=== PATIENT | female | born 1995 | race African-American/Black ===

== ENCOUNTER 2017-10-11 14:05 | Inpatient (IN) ==
[~2017-10-11 14:05] MED LIST: Lidocaine PF 1% Inj 5 ML Syringe INFILTRATN ONE; Phenylephrine/NS 1000 MCG/10ML Syringe IV.PUSH ONE; Succinylcholine Inj 100 MG/5 ML Syringe IV.PUSH ONE
[2017-10-11] MEDS ORDERED: Sod Chloride 0.9% Inj 1,000 ML IV.SIG ONE ×3 (15:16→18:37)
[2017-10-11 15:50] LABS: Baso % (Auto) 0.3 % (0.0-2.0); Eos % (Auto) 0.1 % (0.0-4.0); Hematocrit 33.9 % (35.0-46.0); Hemoglobin 11.1 gm/dL (11.6-15.3); Lymph # (Auto) 2.4 th/mm3 (1.0-4.8); Lymph % (Auto) 18.6 % (9.0-44.0); Mean Corpuscular HGB Conc 32.9 % (32.0-36.0); Mean Corpuscular Hemoglobin 28.5 pg (27.0-34.0); Mean Corpuscular Volume 86.6 fL (80.0-100.0); Mean Platelet Volume 8.7 fL (7.0-11.0); Mono # (Auto) 0.6 th/mm3 (0.0-0.9); Mono % (Auto) 4.4 % (0.0-8.0); Neut % (Auto) 76.6 % (16.0-70.0); Platelet Count 333 th/mm3 (150-450); Red Blood Count 3.91 mil/mm3 (4.00-5.30); Red Cell Distribution Width 14.8 % (11.6-17.2)
--- NOTE | 2017-10-11 16:12 | ED ---
HPI General Chief complaint: Dizziness Stated complaint: Abd pain/dizziness Time Seen by Provider: 10/11/17 15:11 History of Present Illness HPI narrative: 21-year-old female presents to the emergency department for evaluation of abdominal pain and dizziness. Patient states that yesterday she had lower abdominal pain that was mild. States that since this morning the pain has been worse and states that the pain is traveling to her right side as well. Describes it as a cramping pain. States that she has had nausea and 2 episodes of nonbloody nonbilious emesis. She also complains of feeling lightheaded. Denies , states her LMP was 3 weeks ago. Denies any fever, chills, diarrhea, vaginal discharge, vaginal bleeding or spotting. Denies any previous abdominal surgeries. No other complaints. Related Data Home Medications Medication Instructions Recorded Confirmed No Known Home Medications 10/11/17 10/11/17 Allergies Allergy/AdvReac Type Severity Reaction Status Date / Time No Known Allergies Allergy Unverified 10/11/17 14:28 Review of Systems ROS: all other systems reviewed are negative [facility] Medical History Medical History Asthma (Acute) [place] teeth extracted (Acute) Social History Social History Substance History: No History of Abuse Second Hand Smoke Exposure: Yes Smoking Status: Current every day smoker Tobacco Type: Cigars How Often Do You Have a Drink Containing Alcohol: Monthly or less Recent Travel in [facility] [[email or web address]] within the Last 8 Weeks: No Recent Out of Country Travel within the Last 8 Weeks: No Immunization History Tetanus Immunization: Unsure Hx Influenza Vaccine This Season: Yes Exam Narrative Exam Narrative: GENERAL: Well-nourished and well-developed pleasant patient in no acute distress who is nontoxic appearing. SKIN: Warm and dry. HEAD: Normocephalic and atraumatic. EYES: No injection, drainage, or hyphema noted. PERRLA. EOMI. ENT: No nasal drainage noted. Oropharynx is clear. NECK: Supple and the trachea is midline. CARDIOVASCULAR: Regular rate and rhythm. RESPIRATORY: Breath sounds are equal bilaterally with no accessory muscle use, wheezing, rhonchi, or crackles. GASTROINTESTINAL: Tenderness to palpation of lower abdomen and right mid abdomen. Patient is guarding. Abdomen is soft and nondistended. GENITOURINARY: Normal external genitalia without lesions or erythema. Vaginal vault without blood. There is thin white vaginal discharge noted with cervical motion tenderness. Cervical os was closed. Uterus nontender and nonenlarged. Bilateral adnexa nontender without masses. MUSCULOSKELETAL: No obvious deformities, swelling, cyanosis, or ecchymosis is present throughout the upper and lower extremities. Patient has full range of motion without any signs of neurovascular compromise. Distal pulses are 2+ throughout. NEUROLOGICAL: Awake, alert, and oriented. Normal speech and gait. Cranial nerves are grossly intact. Course Initial Documented Vital Signs Temperature 97.5 F L 10/11/17 14:08 Pulse Rate 117 H 10/11/17 14:08 Respiratory Rate 16 10/11/17 14:08 Blood Pressure 101/77 10/11/17 14:08 Pulse Oximetry 98 10/11/17 14:08 Last Documented Vital Signs Temperature 98.0 F 10/11/17 19:14 Pulse Rate 98 H 10/11/17 19:14 Respiratory Rate 20 10/11/17 19:14 Blood Pressure 111/58 L 10/11/17 19:14 Pulse Oximetry 98 10/11/17 16:20 Critical Care Time Critical Care Time: Yes Total Critical Care Time: 60 Attestation: Aggregate critical care time was 60 minutes. Time to perform other separately billable procedures was not included in the critical care time. My time did not include minutes spent treating any other patients simultaneously or on activities that did not directly contribute to the patient's treatment. The services I provided to this patient were to treat and/or prevent clinically significant deterioration that could result in: [ from exsanguination] I provided critical care services requiring my management, as noted below: Chart data review, documentation time, medication orders and management, vital sign assessments/reviewing monitor data, ordering and reviewing lab tests, ordering and interpreting/reviewing x-rays and diagnostic studies, care of the patient and discussion of the patient with the admitting physicians. Medical Decision Making ISABEL Attestation ISABEL supervised visit: Yes Attestation: I, Dr. Chin, have reviewed the advance practice practitioner' s documentation and am in agreement, met with the patient face to face, made the diagnosis, and the medical decision making was done by me. The patient was initially evaluated by SAKSHI PFEIFFER. Please see their complete history and physical. *My assessment and Findings: The patient presents with tachycardia, hypotension , positive , bedside ultrasound shows bilateral adnexal masses, radiologist confirmed, Dr. Monsalve [employer] made aware who will come see the patient at the bedside. An ABG will be performed to obtain a hemoglobin to compare it with the previous CBC.. On repeat ABG hemoglobin 7, 2 units of the emergency release blood have been ordered for immediate transfusion... Blood pressure before emergency release blood systolic of 80, after receiving emergency release blood BP INCREASED TO SBP 130, DR CHURCH OBTAINED CONSENTS OVER PHONE AND TOOK PATIENT TO OR AT 1915 During the course of the patient's emergency department visit, the patient's history, examination, and differential diagnosis were reviewed with the patient. The patient was placed on a gambling monitor with oximetry and frequent blood pressure monitoring. The patient had [peripheral] IV access obtained and blood work sent for analysis. The patient's laboratory studies were reviewed and remarkable for [-]. Radiology studies were reviewed and remarkable for [-] MDM Narrative Medical decision making narrative: 21-year-old female presents to the emergency department for evaluation of abdominal pain, nausea, vomiting and lightheadedness. Patient is afebrile. She is slightly tachycardic with heart rate of 117 bpm. Otherwise vital signs within normal limits. IV access is obtained, labs been drawn and sent. Patient is placed on cardiac telemetry and pulse oximetry monitoring. Patient is administered IV fluids and Zofran 4 mg IV. [id number] is positive. Patient has discharged noted on pelvic exam and therefore is administered Rocephin 1 g IV and Zithromax 1 g orally to treat potential GC/chlamydia. Radiologist Dr. Pollard came to read ultrasound at bedside due to abnormalities - he gives verbal report to me that there are bilateral adnexal abnormalities noted with moderate free fluid and no intrauterine , high suspicion for potentially bilateral ectopic pregnancies. Prior to the ultrasound result a VQ scan was ordered to rule out PE as the patient has continued to complain of presyncopal symptoms and her heart rate has remained tachycardic. With the result of her u/s this has been cancelled as her symptoms are likely due to ectopic . She has never had any chest pain or shortness of breath. I spoke with Dr. Jt BERRY at 6:31PM regarding the patient's current presentation of abdominal pain, lightheadedness, presyncope, current BP of 88/ 52 and HR 102 bpm, US findings suspcious for bilateral ectopic . He states he will come see the patient in the ED. My attending physician Dr. Chin assumed care of patient at this point and the patient received emergency release blood prior to being taken to the OR. Medical Screen Exam Complete: Yes Emergency Medical Condition: Yes Differential Diagnosis Differential Diagnosis: Intrauterine versus ectopic versus UTI versus STI Lab Data Result diagrams: 10/11/17 18:30 10/11/17 15:10 Lab Results 10/11/17 10/11/17 10/11/17 Range/Units 14:16 15:10 15:10 WBC 13.0 H (4.0-11.0) th/mm3 RBC 3.91 L (4.00-5.30) mil/mm3 Hgb 11.1 L (11.6-15.3) gm/dL Hct 33.9 L (35.0-46.0) % MCV 86.6 (80.0-100.0) fL MCH 28.5 (27.0-34.0) pg MCHC 32.9 (32.0-36.0) % RDW 14.8 (11.6-17.2) % Plt Count 333 (150-450) th/mm3 MPV 8.7 (7.0-11.0) fL Neut % (Auto) 76.6 H (16.0-70.0) % Lymph % (Auto) 18.6 (9.0-44.0) % Jackson % (Auto) 4.4 (0.0-8.0) % Eos % (Auto) 0.1 (0.0-4.0) % Baso % (Auto) 0.3 (0.0-2.0) % Neut # (Auto) 10.0 H (1.8-7.7) th/mm3 Lymph # (Auto) 2.4 (1.0-4.8) th/mm3 Jackson # (Auto) 0.6 (0.0-0.9) th/mm3 Eos # (Auto) 0.0 (0.0-0.4) th/mm3 Baso # (Auto) 0.0 (0.0-0.2) th/mm3 WBC Differential . Differential Comment Auto diff final PT (9.8-11.6) sec INR Ratio APTT (24.3-30.1) sec Fibrinogen (227-377) mg/dL Puncture Site Patient Temperature O2 Saturation (90-100) % ABG pH (7.380-7.420) ABG pCO2 (38-42) mmHg ABG pO2 (61-120) mmHg ABG HCO3 (22-26) mmol/L ABG O2 Content (12.0-20.0) Vol % ABG Base Excess (-2-2) mmol/L ABG Methemoglobin (0-2) % Francisco Test Hemoglobin (12.0-16.0) G/DL Carboxyhemoglobin (0-4) % Inspired O2 % Critical Value Sodium 138 (136-145) meq/L Potassium 3.7 (3.5-5.1) meq/L Chloride 106 (98-107) meq/L Carbon Dioxide 24.3 (21.0-32.0) meq/L Anion Gap 8 (5-15) meq/L BUN 8 (7-18) mg/dL Creatinine 0.91 (0.50-1.00) mg/dL Estimated GFR Greater than 89 (>89) mL/min POC Glucose 177 H (68-110) mg/dl Random Glucose 140 H (74-106) mg/dL Calcium 8.4 L (8.5-10.1) mg/dL Total Bilirubin 0.2 (0.2-1.0) mg/dL AST 8 L (16-38) U/L ALT 12 (9-42) U/L Alkaline Phosphatase 38 L (45-117) U/L Total Protein 7.3 (6.4-8.2) g/dL Albumin 3.8 (3.4-5.0) g/dL Lipase 60 L (73-393) U/L Beta HCG, Quant (0-5) mIU/mL Clue Cells (Wet Prep) (None Seen) Trichomonas (Wet Prep) (None Seen) Yeast (Wet Prep) (None Seen) Chlam trachomat DNA PCR (Not Detect) N.gonorrhoeae DNA (PCR) (Not Detect) Blood Type Antibody Screen MTS Gel Crossmatch Blood Bank Comment 10/11/17 10/11/17 10/11/17 Range/Units 15:10 16:40 16:40 WBC (4.0-11.0) th/mm3 RBC (4.00-5.30) mil/mm3 Hgb (11.6-15.3) gm/dL Hct (35.0-46.0) % MCV (80.0-100.0) fL MCH (27.0-34.0) pg MCHC (32.0-36.0) % RDW (11.6-17.2) % Plt Count (150-450) th/mm3 MPV (7.0-11.0) fL Neut % (Auto) (16.0-70.0) % Lymph % (Auto) (9.0-44.0) % Jackson % (Auto) (0.0-8.0) % Eos % (Auto) (0.0-4.0) % Baso % (Auto) (0.0-2.0) % Neut # (Auto) (1.8-7.7) th/mm3 Lymph # (Auto) (1.0-4.8) th/mm3 Jackson # (Auto) (0.0-0.9) th/mm3 Eos # (Auto) (0.0-0.4) th/mm3 Baso # (Auto) (0.0-0.2) th/mm3 WBC Differential Differential Comment PT (9.8-11.6) sec INR Ratio APTT (24.3-30.1) sec Fibrinogen (227-377) mg/dL Puncture Site Patient Temperature O2 Saturation (90-100) % ABG pH (7.380-7.420) ABG pCO2 (38-42) mmHg ABG pO2 (61-120) mmHg ABG HCO3 (22-26) mmol/L ABG O2 Content (12.0-20.0) Vol % ABG Base Excess (-2-2) mmol/L ABG Methemoglobin (0-2) % Francisco Test Hemoglobin (12.0-16.0) G/DL Carboxyhemoglobin (0-4) % Inspired O2 % Critical Value Sodium (136-145) meq/L Potassium (3.5-5.1) meq/L Chloride (98-107) meq/L Carbon Dioxide (21.0-32.0) meq/L Anion Gap (5-15) meq/L BUN (7-18) mg/dL Creatinine (0.50-1.00) mg/dL Estimated GFR (>89) mL/min POC Glucose (68-110) mg/dl Random Glucose (74-106) mg/dL Calcium (8.5-10.1) mg/dL Total Bilirubin (0.2-1.0) mg/dL AST (16-38) U/L ALT (9-42) U/L Alkaline Phosphatase (45-117) U/L Total Protein (6.4-8.2) g/dL Albumin (3.4-5.0) g/dL Lipase (73-393) U/L Beta HCG, Quant 3616 H (0-5) mIU/mL Clue Cells (Wet Prep) None seen (None Seen) Trichomonas (Wet Prep) None seen (None Seen) Yeast (Wet Prep) None seen (None Seen) Chlam trachomat DNA PCR Not detected (Not Detect) N.gonorrhoeae DNA (PCR) Not detected (Not Detect) Blood Type Antibody Screen MTS Gel Crossmatch Blood Bank Comment 10/11/17 10/11/17 10/11/17 Range/Units 18:30 18:30 18:30 WBC 17.2 H (4.0-11.0) th/mm3 RBC 2.91 L (4.00-5.30) mil/mm3 Hgb 8.2 L D (11.6-15.3) gm/dL Hct 25.3 L (35.0-46.0) % MCV 87.2 (80.0-100.0) fL MCH 28.3 (27.0-34.0) pg MCHC 32.4 (32.0-36.0) % RDW 14.7 (11.6-17.2) % Plt Count 297 (150-450) th/mm3 MPV 8.4 (7.0-11.0) fL Neut % (Auto) 85.8 H (16.0-70.0) % Lymph % (Auto) 10.7 (9.0-44.0) % Jackson % (Auto) 3.4 (0.0-8.0) % Eos % (Auto) 0.0 (0.0-4.0) % Baso % (Auto) 0.1 (0.0-2.0) % Neut # (Auto) 14.7 H (1.8-7.7) th/mm3 Lymph # (Auto) 1.8 (1.0-4.8) th/mm3 Jackson # (Auto) 0.6 (0.0-0.9) th/mm3 Eos # (Auto) 0.0 (0.0-0.4) th/mm3 Baso # (Auto) 0.0 (0.0-0.2) th/mm3 WBC Differential . Differential Comment Auto diff final PT 10.8 (9.8-11.6) sec INR 1.1 Ratio APTT 22.1 L (24.3-30.1) sec Fibrinogen (227-377) mg/dL Puncture Site Patient Temperature O2 Saturation (90-100) % ABG pH (7.380-7.420) ABG pCO2 (38-42) mmHg ABG pO2 (61-120) mmHg ABG HCO3 (22-26) mmol/L ABG O2 Content (12.0-20.0) Vol % ABG Base Excess (-2-2) mmol/L ABG Methemoglobin (0-2) % Francisco Test Hemoglobin (12.0-16.0) G/DL Carboxyhemoglobin (0-4) % Inspired O2 % Critical Value Sodium (136-145) meq/L Potassium (3.5-5.1) meq/L Chloride (98-107) meq/L Carbon Dioxide (21.0-32.0) meq/L Anion Gap (5-15) meq/L BUN (7-18) mg/dL Creatinine (0.50-1.00) mg/dL Estimated GFR (>89) mL/min POC Glucose (68-110) mg/dl Random Glucose (74-106) mg/dL Calcium (8.5-10.1) mg/dL Total Bilirubin (0.2-1.0) mg/dL AST (16-38) U/L ALT (9-42) U/L Alkaline Phosphatase (45-117) U/L Total Protein (6.4-8.2) g/dL Albumin (3.4-5.0) g/dL Lipase (73-393) U/L Beta HCG, Quant (0-5) mIU/mL Clue Cells (Wet Prep) (None Seen) Trichomonas (Wet Prep) (None Seen) Yeast (Wet Prep) (None Seen) Chlam trachomat DNA PCR (Not Detect) N.gonorrhoeae DNA (PCR) (Not Detect) Blood Type A Positive Antibody Screen Negative MTS Gel Crossmatch Blood Bank Comment 10/11/17 10/11/17 10/11/17 Range/Units 18:30 18:30 18:50 WBC (4.0-11.0) th/mm3 RBC (4.00-5.30) mil/mm3 Hgb (11.6-15.3) gm/dL Hct (35.0-46.0) % MCV (80.0-100.0) fL MCH (27.0-34.0) pg MCHC (32.0-36.0) % RDW (11.6-17.2) % Plt Count (150-450) th/mm3 MPV (7.0-11.0) fL Neut % (Auto) (16.0-70.0) % Lymph % (Auto) (9.0-44.0) % Jackson % (Auto) (0.0-8.0) % Eos % (Auto) (0.0-4.0) % Baso % (Auto) (0.0-2.0) % Neut # (Auto) (1.8-7.7) th/mm3 Lymph # (Auto) (1.0-4.8) th/mm3 Jackson # (Auto) (0.0-0.9) th/mm3 Eos # (Auto) (0.0-0.4) th/mm3 Baso # (Auto) (0.0-0.2) th/mm3 WBC Differential Differential Comment PT (9.8-11.6) sec INR Ratio APTT (24.3-30.1) sec Fibrinogen 239 (227-377) mg/dL Puncture Site Left radial Patient Temperature 98.6 O2 Saturation 97 (90-100) % ABG pH 7.34 L (7.380-7.420) ABG pCO2 30 L (38-42) mmHg ABG pO2 117 (61-120) mmHg ABG HCO3 16 L* (22-26) mmol/L ABG O2 Content 10.1 L (12.0-20.0) Vol % ABG Base Excess -9.1 L (-2-2) mmol/L ABG Methemoglobin 0.7 (0-2) % Francisco Test Present Hemoglobin 7.3 L (12.0-16.0) G/DL Carboxyhemoglobin 1.1 (0-4) % Inspired O2 21 % Critical Value Yes Sodium (136-145) meq/L Potassium (3.5-5.1) meq/L Chloride (98-107) meq/L Carbon Dioxide (21.0-32.0) meq/L Anion Gap (5-15) meq/L BUN (7-18) mg/dL Creatinine (0.50-1.00) mg/dL Estimated GFR (>89) mL/min POC Glucose (68-110) mg/dl Random Glucose (74-106) mg/dL Calcium (8.5-10.1) mg/dL Total Bilirubin (0.2-1.0) mg/dL AST (16-38) U/L ALT (9-42) U/L Alkaline Phosphatase (45-117) U/L Total Protein (6.4-8.2) g/dL Albumin (3.4-5.0) g/dL Lipase (73-393) U/L Beta HCG, Quant (0-5) mIU/mL Clue Cells (Wet Prep) (None Seen) Trichomonas (Wet Prep) (None Seen) Yeast (Wet Prep) (None Seen) Chlam trachomat DNA PCR (Not Detect) N.gonorrhoeae DNA (PCR) (Not Detect) Blood Type Antibody Screen MTS Gel Crossmatch See Detail Blood Bank Comment 10/11/17 10/11/17 Range/Units 19:13 19:13 WBC (4.0-11.0) th/mm3 RBC (4.00-5.30) mil/mm3 Hgb (11.6-15.3) gm/dL Hct (35.0-46.0) % MCV (80.0-100.0) fL MCH (27.0-34.0) pg MCHC (32.0-36.0) % RDW (11.6-17.2) % Plt Count (150-450) th/mm3 MPV (7.0-11.0) fL Neut % (Auto) (16.0-70.0) % Lymph % (Auto) (9.0-44.0) % Jackson % (Auto) (0.0-8.0) % Eos % (Auto) (0.0-4.0) % Baso % (Auto) (0.0-2.0) % Neut # (Auto) (1.8-7.7) th/mm3 Lymph # (Auto) (1.0-4.8) th/mm3 Jackson # (Auto) (0.0-0.9) th/mm3 Eos # (Auto) (0.0-0.4) th/mm3 Baso # (Auto) (0.0-0.2) th/mm3 WBC Differential Differential Comment PT (9.8-11.6) sec INR Ratio APTT (24.3-30.1) sec Fibrinogen (227-377) mg/dL Puncture Site Patient Temperature O2 Saturation (90-100) % ABG pH (7.380-7.420) ABG pCO2 (38-42) mmHg ABG pO2 (61-120) mmHg ABG HCO3 (22-26) mmol/L ABG O2 Content (12.0-20.0) Vol % ABG Base Excess (-2-2) mmol/L ABG Methemoglobin (0-2) % Francisco Test Hemoglobin (12.0-16.0) G/DL Carboxyhemoglobin (0-4) % Inspired O2 % Critical Value Sodium (136-145) meq/L Potassium (3.5-5.1) meq/L Chloride (98-107) meq/L Carbon Dioxide (21.0-32.0) meq/L Anion Gap (5-15) meq/L BUN (7-18) mg/dL Creatinine (0.50-1.00) mg/dL Estimated GFR (>89) mL/min POC Glucose (68-110) mg/dl Random Glucose (74-106) mg/dL Calcium (8.5-10.1) mg/dL Total Bilirubin (0.2-1.0) mg/dL AST (16-38) U/L ALT (9-42) U/L Alkaline Phosphatase (45-117) U/L Total Protein (6.4-8.2) g/dL Albumin (3.4-5.0) g/dL Lipase (73-393) U/L Beta HCG, Quant (0-5) mIU/mL Clue Cells (Wet Prep) (None Seen) Trichomonas (Wet Prep) (None Seen) Yeast (Wet Prep) (None Seen) Chlam trachomat DNA PCR (Not Detect) N.gonorrhoeae DNA (PCR) (Not Detect) Blood Type Antibody Screen MTS Gel Crossmatch See Detail Blood Bank Comment Imaging Data Radiologist's impression: Pelvis Ultrasound 10/11/17 16:04 CONCLUSION: 1. Intrauterine is not identified despite a quantitative beta-hCG greater than 3500. 2. No abnormalities seen in both adnexa, a 2.2 cm cyst with small internal wall nodule on the right side and a solid lesion in the left adnexa measuring 3.0 cm with 2 different echogenic components. There is also moderate amount of free fluid. Either of the abnormalities in the left or right adnexa could represent ectopic pregnancies. 3. The findings were discussed with the ED providers. Chest X-Ray 10/11/17 18:03 CONCLUSION: The lungs are clear. Discharge Plan Discharge Disposition Patient Disposition: 30 Still Patient Discharge Condition Condition: Good Discharge Order Discharge Orders: Discharge Order (Routine); Ordered 10/12/17 Ordered By: Tez Waters Discharge Details Anticipated Discharge Date: 10/11/17 Diagnosis: Ectopic , tubal Physicians Team ED Provider: Satinder Chin ED Midlevel Provider: Sakshi Pfeiffer Primary Care Provider: Primary Care Asia Alvarez Attending Provider: Tez Waters Status ED Status: Left Department Discharge Information Discharge Date/Time: 10/11/17 20:13
[2017-10-11 16:16] LABS: Alanine Aminotransferase 12 U/L (9-42); Albumin 3.8 g/dL (3.4-5.0); Anion Gap 8 meq/L (5-15); Aspartate Aminotransferase 8 U/L (16-38); Blood Urea Nitrogen 8 mg/dL (7-18); Calcium 8.4 mg/dL (8.5-10.1); Carbon Dioxide 24.3 meq/L (21.0-32.0); Chloride 106 meq/L (98-107); Glomerular Filtration Rate Greater Than 89 mL/min (>89); Glucose,Random 140 mg/dL (74-106); Lipase 60 U/L (73-393); Potassium 3.7 meq/L (3.5-5.1); Sodium 138 meq/L (136-145)
[2017-10-11 16:18] LABS: Alkaline Phosphatase 38 U/L (45-117); Total Protein 7.3 g/dL (6.4-8.2)
[2017-10-11] MEDS ORDERED: Azithromycin 250 MG Tablet PO ONE (16:44)
[2017-10-11 18:44] LABS: ABG Base Excess -9.1 mmol/L (-2-2); ABG PCO2 30 mmHg (38-42); ABG PO2 117 mmHg (61-120)
[2017-10-11 18:50] LABS: Baso % (Auto) 0.1 % (0.0-2.0); Hematocrit 25.3 % (35.0-46.0); Hemoglobin 8.2 gm/dL (11.6-15.3); Lymph # (Auto) 1.8 th/mm3 (1.0-4.8); Lymph % (Auto) 10.7 % (9.0-44.0); Mean Corpuscular HGB Conc 32.4 % (32.0-36.0); Mean Corpuscular Hemoglobin 28.3 pg (27.0-34.0); Mean Corpuscular Volume 87.2 fL (80.0-100.0); Mean Platelet Volume 8.4 fL (7.0-11.0); Mono # (Auto) 0.6 th/mm3 (0.0-0.9); Mono % (Auto) 3.4 % (0.0-8.0); Neut # (Auto) 14.7 th/mm3 (1.8-7.7); Neut % (Auto) 85.8 % (16.0-70.0); Platelet Count 297 th/mm3 (150-450); Red Blood Count 2.91 mil/mm3 (4.00-5.30); Red Cell Distribution Width 14.7 % (11.6-17.2); White Blood Count 17.2 th/mm3 (4.0-11.0)
--- NOTE | 2017-10-11 18:59 | US ---
EXAM DATE: 10/11/2017 6:34 PM EDT AGE/SEX: 21 years / Female INDICATIONS: Pelvic pain. CLINICAL DATA: This is the patient's initial encounter. Patient reports that signs and symptoms have been present for 1 week and indicates a pain score of 10/10. MEDICAL/SURGICAL HISTORY: Asthma. . [place] teeth extracted. COMPARISON: No prior exams available for comparison. TECHNIQUE: Real-time ultrasound of the pelvis was performed using an endovaginal transducer. [facility] [place]UREMENTS: Uterus:__7.9 x 5.4 x 4.0 cm Endometrial Stripe:__6 mm Right Ovary:__ 3.2 x 1.8 x 2.0 cm Left Ovary:__ 3.8 x 2.8 x 2.4 cm FINDINGS: Uterus: The endometrial stripe has a homogeneous echotexture no evidence of endometrial fluid. No ge stational sac is identified. The myometrium has a homogeneous echotexture. Right adnexa: The right ovary is identified and contains multiple follicles. Adjacent to the right o vary, there is a thick walled cystic abnormality which measures 2.2 x 1.8 x 1.9 cm. There is a 2 mm n odule in the wall of the cyst. No increased flow seen by color Doppler. Left adnexa: Left ovary is identified and contains multiple follicles. There is also a solid abnorma lity which measures 3.0 x 2.7 x 2.7 cm either located within or adjacent to the ovary. A portion of t his abnormality is crescentic in shape with homogeneous echotexture. The other portion is round and h as a hypoechogenic rim and hyperechogenic central septum. There is one vessel identified within the h omogeneous portion by color Doppler. Other: Moderate amount of free fluid in the cul-de-sac and about both adnexa. CONCLUSION: 1. Intrauterine is not identified despite a quantitative beta-hCG greater than 3500. 2. No abnormalities seen in both adnexa, a 2.2 cm cyst with small internal wall nodule on the right side and a solid lesion in the left adnexa measuring 3.0 cm with 2 different echogenic components. Th ere is also moderate amount of free fluid. Either of the abnormalities in the left or right adnexa co uld represent ectopic pregnancies. 3. The findings were discussed with the ED providers. Electronically signed by: Jm Pollard MD 10/11/2017 6:58 PM EDT
[2017-10-11 19:00] LABS: Activated Partial Thrombo Time 22.1 sec (24.3-30.1); INR 1.1 Ratio; Prothrombin Time 10.8 sec (9.8-11.6)
[2017-10-11] MEDS ORDERED: Bupivacaine/Epinephrine PF Inj 0.25% 10 ML Vial ONE (19:21)
--- NOTE | 2017-10-11 19:28 | P.HPOB ---
History of Present Illness Primary Care Physician: No Primary Care Physician History of Present Illness: 21 yo G1 AAF here today by herself who presented to the ER with abdominal pain, I was notified by the ER PA that she may have "bilateral ectopics", she was noted be tachycardic, and hypotensive, her Hb trended from 11.0 to 7.3 while in the ER. She is somewhat somnolent during our encounter but she states this is a unplanned , she has regular monthly cycles, and her LMP was around 3-4 weeks ago making her 3-4 weeks gestation by her states LMP, she denies any vaginal bleeding. She has not been using contraception. 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 PE: General: alert in bed, in mild distress Skin: cool and dry Pulm: CTA Bilat Cardiac: tachycardic, no MR or G ABD: soft, distended, no rebound, no gaurding, : deferred Extrem: no CCE PMFSH - History History Provided By: Patient - Medical History Medical History: Medical History (Last Updated 10/11/17 @ 14:31 by Gurdeep Boogie) Asthma [place] teeth extracted - Tobacco History Second Hand Smoke Exposure: Yes Tobacco Use In Past 30 Days: Yes Smoking Status: Current every day smoker Tobacco Type: Cigars - Alcohol History How Often Do You Have a Drink Containing Alcohol: Monthly or less - Substance Use History Substance History: No History of Abuse - Travel History Recent Travel in the [place] Within the Last 8 Weeks: No Recent Travel Out of the Country Within the Last 8 Weeks: No - Immunization History Tetanus Immunization: Unsure Hx Influenza Vaccine This Season: Yes Medications and Allergies Active Medications: Active Medications Cefazolin Sodium 2,000 mg/ (Sodium Chloride) 100 mls @ 200 mls/hr IV.SIG [employer] [facility] Stop: 10/15/17 19:59 Lactated Ringer's (Lr 1000 Ml Inj) 1,000 mls @ 2,000 mls/hr IV.SIG .Q30M ONE Stop: 10/11/17 19:36 Lactated Ringer's (Lr 1000 Ml Inj) 1,000 mls @ 150 mls/hr IV.CONT .Q6H40M [facility] Sodium Chloride (Ns Flush) 2 ml IV.FLUSH PRN PRN PRN Reason: FLUSH AFTER USING IV ACCESS Allergies Allergy/AdvReac Type Severity Reaction Status Date / Time No Known Allergies Allergy Unverified 10/11/17 14:28 Home Medications Medication Instructions Recorded Confirmed Type No Known Home Medications 10/11/17 10/11/17 History Exam Vital signs: Vital Signs 10/11/17 14:08 10/11/17 14:14 10/11/17 16:20 Temperature 97.5 F L Pulse Rate 117 H 102 H Respiratory Rate 16 17 19 Blood Pressure 101/77 100/55 L Pulse Oximetry 98 97 10/11/17 19:00 Temperature 98.8 F Pulse Rate 107 H Respiratory Rate 18 Blood Pressure 147/60 H Pulse Oximetry Intake & Output 10/11/17 10/11/17 10/12/17 06:59 18:59 06:59 Intake Total 0 / 0 0 / 0 Balance 0 / 0 0 / 0 Weight 68.039 kg Intake: Intake (Blood Product) Amt 0 / 0 0 / 0 Rbc As-3 Leukoreduced Unit 0 / 0 [id number] Rbc As-3 Leukoreduced Unit 0 / 0 [id number] Results - Labs CBC & Chem 7: 10/11/17 18:30 10/11/17 15:10 Labs: Laboratory Results - last 24 hr 10/11/17 10/11/17 10/11/17 14:16 15:10 15:10 WBC 13.0 H RBC 3.91 L Hgb 11.1 L Hct 33.9 L MCV 86.6 MCH 28.5 MCHC 32.9 RDW 14.8 Plt Count 333 MPV 8.7 Neut % (Auto) 76.6 H Lymph % (Auto) 18.6 Toole % (Auto) 4.4 Eos % (Auto) 0.1 Baso % (Auto) 0.3 Neut # (Auto) 10.0 H Lymph # (Auto) 2.4 Toole # (Auto) 0.6 Eos # (Auto) 0.0 Baso # (Auto) 0.0 WBC Differential . Differential Comment Auto diff final PT INR APTT Puncture Site Patient Temperature O2 Saturation ABG pH ABG pCO2 ABG pO2 ABG HCO3 ABG O2 Content ABG Base Excess ABG Methemoglobin Francisco Test Hemoglobin Carboxyhemoglobin Inspired O2 Critical Value Sodium 138 Potassium 3.7 Chloride 106 Carbon Dioxide 24.3 Anion Gap 8 BUN 8 Creatinine 0.91 Estimated GFR Greater than 89 POC Glucose 177 H Random Glucose 140 H Calcium 8.4 L Total Bilirubin 0.2 AST 8 L ALT 12 Alkaline Phosphatase 38 L Total Protein 7.3 Albumin 3.8 Lipase 60 L Beta HCG, Quant Clue Cells (Wet Prep) Trichomonas (Wet Prep) Yeast (Wet Prep) Blood Type [facility] Gel Crossmatch 10/11/17 10/11/17 10/11/17 15:10 16:40 18:30 WBC 17.2 H RBC 2.91 L Hgb 8.2 L D Hct 25.3 L MCV 87.2 MCH 28.3 MCHC 32.4 RDW 14.7 Plt Count 297 MPV 8.4 Neut % (Auto) 85.8 H Lymph % (Auto) 10.7 Toole % (Auto) 3.4 Eos % (Auto) 0.0 Baso % (Auto) 0.1 Neut # (Auto) 14.7 H Lymph # (Auto) 1.8 Toole # (Auto) 0.6 Eos # (Auto) 0.0 Baso # (Auto) 0.0 WBC Differential . Differential Comment Auto diff final PT INR APTT Puncture Site Patient Temperature O2 Saturation ABG pH ABG pCO2 ABG pO2 ABG HCO3 ABG O2 Content ABG Base Excess ABG Methemoglobin Francisco Test Hemoglobin Carboxyhemoglobin Inspired O2 Critical Value Sodium Potassium Chloride Carbon Dioxide Anion Gap BUN Creatinine Estimated GFR POC Glucose Random Glucose Calcium Total Bilirubin AST ALT Alkaline Phosphatase Total Protein Albumin Lipase Beta HCG, Quant 3616 H Clue Cells (Wet Prep) None seen Trichomonas (Wet Prep) None seen Yeast (Wet Prep) None seen Blood Type MTS Gel Crossmatch 10/11/17 10/11/17 10/11/17 18:30 18:30 18:30 WBC RBC Hgb Hct MCV MCH MCHC RDW Plt Count MPV Neut % (Auto) Lymph % (Auto) Toole % (Auto) Eos % (Auto) Baso % (Auto) Neut # (Auto) Lymph # (Auto) Toole # (Auto) Eos # (Auto) Baso # (Auto) WBC Differential Differential Comment PT 10.8 INR 1.1 APTT 22.1 L Puncture Site Left radial Patient Temperature 98.6 O2 Saturation 97 ABG pH 7.34 L ABG pCO2 30 L ABG pO2 117 ABG HCO3 16 L* ABG O2 Content 10.1 L ABG Base Excess -9.1 L ABG Methemoglobin 0.7 Francisco Test Present Hemoglobin 7.3 L Carboxyhemoglobin 1.1 Inspired O2 21 Critical Value Yes Sodium Potassium Chloride Carbon Dioxide Anion Gap BUN Creatinine Estimated GFR POC Glucose Random Glucose Calcium Total Bilirubin AST ALT Alkaline Phosphatase Total Protein Albumin Lipase Beta HCG, Quant Clue Cells (Wet Prep) Trichomonas (Wet Prep) Yeast (Wet Prep) Blood Type A Positive MTS Gel Crossmatch 10/11/17 18:50 WBC RBC Hgb Hct MCV MCH MCHC RDW Plt Count MPV Neut % (Auto) Lymph % (Auto) Toole % (Auto) Eos % (Auto) Baso % (Auto) Neut # (Auto) Lymph # (Auto) Toole # (Auto) Eos # (Auto) Baso # (Auto) WBC Differential Differential Comment PT INR APTT Puncture Site Patient Temperature O2 Saturation ABG pH ABG pCO2 ABG pO2 ABG HCO3 ABG O2 Content ABG Base Excess ABG Methemoglobin Francisco Test Hemoglobin Carboxyhemoglobin Inspired O2 Critical Value Sodium Potassium Chloride Carbon Dioxide Anion Gap BUN Creatinine Estimated GFR POC Glucose Random Glucose Calcium Total Bilirubin AST ALT Alkaline Phosphatase Total Protein Albumin Lipase Beta HCG, Quant Clue Cells (Wet Prep) Trichomonas (Wet Prep) Yeast (Wet Prep) Blood Type MTS Gel Crossmatch See Detail - Imaging Impressions Pelvis Ultrasound 10/11/17 16:04 CONCLUSION: 1. Intrauterine is not identified despite a quantitative beta-hCG greater than 3500. 2. No abnormalities seen in both adnexa, a 2.2 cm cyst with small internal wall nodule on the right side and a solid lesion in the left adnexa measuring 3.0 cm with 2 different echogenic components. There is also moderate amount of free fluid. Either of the abnormalities in the left or right adnexa could represent ectopic pregnancies. 3. The findings were discussed with the ED providers. Caprini VTE Risk Assessment Caprini VTE Risk Assessment: Moderate/High Risk (score >= 2) Caprini Risk Assessment Model: Point Value = 1 Point Value = 2 Point Value = 3 Point Value = 5 Age 41-60 Minor surgery BMI > 25 kg/m2 Swollen legs Varicose veins or History of unexplained or recurrent spontaneous Oral contraceptives or hormone replacement Sepsis (< 1 month) Serious lung disease, including pneumonia (< 1 month) Abnormal pulmonary function Acute myocardial infarction Congestive heart failure (< 1 month) History of inflammatory bowel disease Medical patient at bed rest Age 61-74 Arthroscopic surgery Major open surgery (> 45 min) Laparoscopic surgery (> 45 min) Malignancy Confined to bed (> 72 hours) Immobilizing plaster cast Central venous access Age >= 75 History of VTE Family history of VTE Factor V Leiden Prothrombin [id number] Lupus anticoagulant Anticardiolipin antibodies Elevated serum homocysteine Heparin-induced thrombocytopenia Other congenital or acquired thrombophilia Stroke (< 1 month) Elective arthroplasty Hip, pelvis, or leg fracture Acute spinal cord injury (< 1 month) Prophylaxis Regimen: Total Risk Factor Score Risk Level Prophylaxis Regimen 0-1 Low Early ambulation 2 Moderate Order ONE of the following: *Sequential Compression Device (SCD) *Heparin 5000 units SQ BID 3-4 Higher Order ONE of the following medications: *Heparin 5000 units SQ TID *Enoxaparin/Lovenox 40 mg SQ daily (WT < 150 kg, CrCl > 30 mL/min) *Enoxaparin/Lovenox 30 mg SQ daily (WT < 150 kg, CrCl > 10-29 mL/min) *Enoxaparin/Lovenox 30 mg SQ BID (WT < 150 kg, CrCl > 30 mL/min) AND/OR *Sequential Compression Device (SCD) 5 or more Highest Order ONE of the following medications: *Heparin 5000 units SQ TID (Preferred with Epidurals) *Enoxaparin/Lovenox 40 mg SQ daily (WT < 150 kg, CrCl > 30 mL/min) *Enoxaparin/Lovenox 30 mg SQ daily (WT < 150 kg, CrCl > 10-29 mL/min) *Enoxaparin/Lovenox 30 mg SQ BID (WT < 150 kg, CrCl > 30 mL/min) AND *Sequential Compression Device (SCD) Assessment and Plan - Plan 21 yo G1 with suspected ectopic 1. symptomatic anemia, suspected ruptured ectopic : based on US findings, beta hcg and Hb trend w/o vaginal bleeding my suspicion is high for ruptured ectopic , - discussed plan for diagnostic laparoscopy, possible laparotomy, possible unilateral or bilateral salpingectomy and/or removal of ectopic , possible D&C and any other indicated procedures. Discussed R/B/A and expected outcomes, bleeding scarring infection, damage to surrounding organs, and small risk of , there are always possibility of unforeseen complications of risks and she consented to the above - She has already received 2 units of emergency release PRBCs, 2 are in the room and will move to the OR with her, I T&C x4 and for 4 of FFP. - PT/PTT are WNL. will repeat with fibrinogen in OR - Discussed above with her mother Tess [phone] ) and she verbalized understanding, she is unforunetly out of the area working in [place]
[2017-10-11] MEDS ORDERED: ceFAZolin Inj 2,000 MG in Sodium Chlor 0.9% Inj 80 ML IV.SIG SCH (20:00)
--- NOTE | 2017-10-11 20:43 | XR ---
EXAM DATE: 10/11/2017 7:35 PM EDT AGE/SEX: 21 years / Female INDICATIONS: Syncope. Possible ectopic . CLINICAL DATA: This is the patient's initial encounter. Patient reports that signs and symptoms have been present for 1 day and indicates a pain score of 0/10. MEDICAL/SURGICAL HISTORY: None. None. COMPARISON: No prior exams available for comparison. FINDINGS: A single AP view of the chest demonstrates the lungs to be symmetrically aerated without evidence of mass, infiltrate or effusion. Incidental note of azygous lobe. The cardiomediastinal contours are un remarkable. Osseous structures are intact. CONCLUSION: The lungs are clear. Electronically signed by: Jm Pollard MD 10/11/2017 8:41 PM EDT
[2017-10-11] MEDS ORDERED: fentaNYL Citrate Inj 250 MCG/5 ML Ampul ONE (20:48)
[2017-10-11] MEDS ORDERED: fentaNYL Citrate Inj 100 MCG/2 ML Ampul ONE (20:52)
[2017-10-11] MEDS ORDERED: Sugammadex Inj 200 MG/2 ML Vial IV.PUSH ONE (20:54)
[2017-10-11] MEDS ORDERED: Ibuprofen 600 MG Tablet PO PRN (21:14)
[2017-10-11] MEDS ORDERED: *Meperidine Inj 25 MG/ML Vial PERIprocedural Use ONLY ONE (21:24)
--- NOTE | 2017-10-11 21:28 | P.OP ---
Date of procedure: 10/11/17 Surgeon: Tez Waters MD Operation and Findings: Preoperative diagnosis: 1. Suspected ruptured ectopic 2. Acute blood loss anemia Postop diagnosis 1. Ruptured right fallopian tube 2. Acute blood loss anemia Procedure 1. Diagnostic laparoscopy, right salpingectomy Surgeon Dr. Tez Waters Rework Operator: Alberto Main OR scrub staff Findings: 1. Normal external female genitalia vagina and cervix 2. Upon entering abdomen approximately 2.25 L of old blood. 3. Ruptured and expelled ectopic from the right isthmic segment, small half centimeter defect in missing segment of the tube with a slow ooze of blood. 4. Otherwise normal intra-abdominal anatomy with no adhesions. Normal liver, gallbladder, nonvisualized appendix. Normal uterus, bilateral ovaries, left fallopian tube, otherwise normal-appearing right fallopian tube other than ruptured ectopic site. Anesthesia: General endotracheal Specimen: Right fallopian tube, routine Estimated blood loss: Intraoperative 50 cc. Patient had approximately 2250 cc of old blood within the abdomen Fluid replacement: -800 cc lactated Ringer's -2 units FFP given intraoperatively -2 units of typed and cross blood given intraoperatively -Status post 2 units of emergency release blood given preoperatively Urine output: 30 cc clear urine Via Cochran DVT prophylaxis: Sequential compression devices throughout the case Antibiotics: Preoperatively given 2 g Ancef IV. In the ER patient was given Rocephin and 1 g azithromycin for coverage empirically for gonorrhea. Counts: correct x2 Time out done: yes Disposition: Stable to PACU then to floor for overnight observation Indications: This patient is a 21-year-old G1 who presents to the ER with abdominal pain, she did not know she was prior to arrival, a hCG was 3616 and ultrasound showed signs suggestive of ruptured ectopic with nothing within the intrauterine cavity, patient was diaphoretic, tachycardic and hypotensive. The patient was consented for diagnostic laparoscopy, possible laparotomy, and removal of ectopic and any other indicated procedures. Please see separate H&P and consent for details. The patient was rushed to the OR as a category A case Description of procedure: The patient was taken to the operating room and placed under general anesthesia, she was positioned in lithotomy position in Francisco stirrups with the left arm tucked. The abdomen, perineum, & vagina were prepped and draped in sterile fashion. A speculum was inserted and the tenaculum applied to the anterior lip of the cervix, the acorn uterine manipulator was placed. A Cochran was inserted and attention was turned to the abdomen. To note local anesthesia was used at all port sites, approximately 10 cc of quarter percent Marcaine with epinephrine. A 5 mm umbilical incision was made in with direct optical view technique the abdomen was entered and insufflated with CO2 gas. The patient was placed in Trendelenburg with the above findings noted. 2 left lower quadrant 5mm ports were placed under direct intra-abdominal visualization. The uterus was elevated and there was noted to be a bleeding defect in the right fallopian tube at the isthmic segment. The fallopian tube was elevated clamped desiccated and transected using the bipolar Enseal device through the mesosalpinx up to the interstitial cornual segment. The fallopian tube was removed from the field. The surgical site was hemostatic. The abdomen was irrigated copiously and all blood clots were suctioned out. There is no pooled blood around the liver or splenic area at the end of the case. The abdomen was desufflated and the trocars removed. The skin was closed with 4-0 Monocryl and skin glue applied overlying. The tenaculum and [place] were removed and insertion sites were hemostatic after use of the Bovie. The patient was awoken from anesthesia in stable condition and transferred to PACU.
[2017-10-11] MEDS ORDERED: *morphine SULFATE 4 MG/ML PERIprocedure ONLY ONE (21:29)
[2017-10-11] MEDS ORDERED: HYDROmorphone PF Inj 2 MG/ML Vial IV.PUSH PRN (22:00)
--- NOTE | 2017-10-11 22:08 | P.OBGPN ---
queried PDMP, and no matching patient found
[2017-10-12 02:12] LABS: Hematocrit 30.4 % (35.0-46.0); Hemoglobin 10.1 gm/dL (11.6-15.3); Lymph % (Auto) 4.9 % (9.0-44.0); Mean Corpuscular HGB Conc 33.3 % (32.0-36.0); Mean Platelet Volume 8.3 fL (7.0-11.0); Mono # (Auto) 0.5 th/mm3 (0.0-0.9); Mono % (Auto) 2.5 % (0.0-8.0); Neut # (Auto) 19.3 th/mm3 (1.8-7.7); Neut % (Auto) 92.6 % (16.0-70.0); Platelet Count 131 th/mm3 (150-450); Red Blood Count 3.49 mil/mm3 (4.00-5.30); Red Cell Distribution Width 13.9 % (11.6-17.2); White Blood Count 20.9 th/mm3 (4.0-11.0)
[2017-10-12 02:24] LABS: Activated Partial Thrombo Time 22.2 sec (24.3-30.1); Prothrombin Time 10.6 sec (9.8-11.6)
[2017-10-12 02:35] LABS: Alanine Aminotransferase 18 U/L (9-42); Alkaline Phosphatase 34 U/L (45-117); Anion Gap 10 meq/L (5-15); Aspartate Aminotransferase 22 U/L (16-38); Blood Urea Nitrogen 7 mg/dL (7-18); Calcium 7.4 mg/dL (8.5-10.1); Carbon Dioxide 20.7 meq/L (21.0-32.0); Chloride 109 meq/L (98-107); Glomerular Filtration Rate Greater Than 89 mL/min (>89); Glucose,Random 129 mg/dL (74-106); Magnesium 1.7 mg/dL (1.5-2.5); Potassium 4.5 meq/L (3.5-5.1); Sodium 140 meq/L (136-145); Total Protein 5.8 g/dL (6.4-8.2)
[2017-10-12] MEDS ORDERED: Calcium Gluconate Inj 1 GM in Sodium Chlor 0.9% Inj 90 ML IV.SIG ONE (04:57)
[2017-10-12 05:00] LABS: Bilirubin,Urine Negative (Negative); Clarity,Urine Clear (Clear); Color,Urine Straw (Yellw/Straw); Glucose,Urine (UA) Negative (Negative); Nitrite,Urine Negative (Negative); Specific Gravity,Urine 1.008 (1.002-1.035)
[2017-10-12 05:01] LABS: Leukocyte Esterase,Urine Negative (Negative); Mucus,Urine Few /lpf (Occasional)
[2017-10-12 05:04] LABS: Amphetamine Screen,Urine Neg (Neg); Barbiturate Screen,Urine Neg (Neg); Cannabinoid Screen,Urine Pos (Neg); Cocaine Screen,Urine Neg (Neg)
[2017-10-12 05:06] LABS: Opiate Screen,Urine Neg (Neg)
[2017-10-12] MEDS ORDERED: SODIUM CHLOR 0.9% IV.SIG ONE (05:45)
[2017-10-12] MEDS ORDERED: CALCIUM CHLORIDE IV.SIG ONE (05:45)
--- NOTE | 2017-10-12 06:33 | P.PNOB ---
Subjective Post op day: 2 Interval history: Patient doing well, having some right shoulder discomfort and right upper quadrant pressure. Minimal appetite, no nausea or vomiting, no ambulation yet, Cochran in. Objective Vital Signs/I&O: Vital Signs 10/11/17 14:08 10/11/17 14:14 10/11/17 16:20 Temperature 97.5 F L Pulse Rate 117 H 102 H Respiratory Rate 16 17 19 Blood Pressure 101/77 100/55 L Pulse Oximetry 98 97 10/11/17 19:00 10/11/17 19:14 10/11/17 21:19 Temperature 98.8 F 98.0 F 97.4 F L Pulse Rate 107 H 98 H 121 H Respiratory Rate 18 20 20 Blood Pressure 147/60 H 111/58 L 118/63 Pulse Oximetry 100 10/11/17 21:30 10/11/17 21:45 10/11/17 22:00 Temperature 97.4 F L Pulse Rate 118 H 109 H 91 H Respiratory Rate 20 20 20 Blood Pressure 128/62 116/57 L 117/58 L Pulse Oximetry 100 100 100 10/11/17 23:04 10/12/17 02:35 Temperature 97.3 F L 97.2 F L Pulse Rate 86 83 Respiratory Rate 18 18 Blood Pressure 119/59 L 133/67 Pulse Oximetry 98 99 Intake & Output 10/11/17 10/11/17 10/12/17 06:59 18:59 06:59 Intake Total 0 / 0 2800 / 2800 Output Total 70 / 70 Balance 0 / 0 2730 / 2730 Weight 68.039 kg Intake: Anesthesia Amount 800 / 800 Intake (Blood Product) Amt 0 / 0 0 / 0 Rbc As-3 Leukoreduced Unit 0 / 0 [id number] Rbc As-3 Leukoreduced Unit 0 / 0 [id number] Autotransfusion Amount 1999 / 1999 Output: Estimated Blood Loss 50 / 50 Urine Amount (Catheter) Indwelling Urethral Catheter Result Diagrams: 10/12/17 01:37 10/12/17 01:37 Objective Remarks: GENERAL: Well-nourished, well-developed patient. CARDIOVASCULAR: Regular rate and rhythm without murmurs, gallops, or rubs. RESPIRATORY: Breath sounds equal bilaterally. No accessory muscle use. ABDOMEN/GI: Abdomen soft, non-tender, bowel sounds present. Incisions: Clean, dry and intact. GENITOURINARY: Light to moderate bleeding. EXTREMITIES: No cyanosis or edema, non-tender, without signs of DVT. Medications and IVs: Active Medications Diphenhydramine HCl (Benadryl) 25 mg PO Q6H PRN PRN Reason: ITCHING Hydromorphone HCl (Dilaudid Pf Inj) 1 mg IV.PUSH Q4H PRN PRN Reason: BREAKTHROUGH PAIN Cefazolin Sodium 2,000 mg/ (Sodium Chloride) 100 mls @ 200 mls/hr IV.SIG [employer] [facility] Stop: 10/15/17 19:59 Lactated Ringer's (Lr 1000 Ml Inj) 1,000 mls @ 125 mls/hr IV.CONT .Q8H [facility] Last Admin: 10/11/17 21:50 Dose: 125 mls/hr Calcium Chloride 0.33 gm/ (Sodium Chloride) 93.3 mls @ 100 mls/hr IV.SIG ONCE ONE Stop: 10/12/17 06:40 Ibuprofen (Motrin) 600 mg PO Q6H PRN PRN Reason: Fever >101 F Miscellaneous Information ([facility] [facility] 1 each OTHER UNSCH PRN PRN Reason: SEE LABEL COMMENTS Stop: 10/12/17 22:24 Ondansetron HCl (Zofran Inj) 4 mg IV.PUSH Q6H PRN PRN Reason: NAUSEA OR VOMITING Oxycodone/Acetaminophen (Percocet 5/325 Mg) 1 tab PO Q4H PRN PRN Reason: PAIN SCALE 1 TO 5 Last Admin: 10/12/17 03:25 Dose: 1 tab Oxycodone/Acetaminophen (Percocet 5/325 Mg) 2 tab PO Q4H PRN PRN Reason: PAIN SCALE 6 TO 10 Sodium Chloride (Ns Flush) 2 ml IV.FLUSH PRN PRN PRN Reason: FLUSH AFTER USING IV ACCESS Sodium Chloride (Ns Flush) 2 ml IV.FLUSH BID [facility] Assessment and Plan - Plan 21 yo s/p diagnostic laparoscopy, right salpingectomy for ruptured right ectopic. 1. POD #1: AF, VSS, output appropriate, AM labs pending, discussed intraoperative findings, postoperative precautions and expectations. Remove Cochran now, dc IV fluids, encourage ambulation, p.o. intake. Recommended follow- up in 1-2 weeks in the office, however patient plans to return to [place] with her mother. Provided her hospital records for reference if she follows up with a supervisor of operations there, discussed importance of following her beta hCG is no specific ectopic was identified to trend them to 0. -Patient Rh+ no Rhogam needed. 2. Acute blood loss anemia/massive transfusion: s/p 2 FFP and 4 PRBCs. Hypocalcemia being corrected, patient asymptomatic, repeat labs pending this morning. With suspected ectopic 3. Contraception: Discussed risks, benefits and expected outcomes of all contraception. She tried Depo in the past and did not like GI side effects, cannot remember to take OCPs regularly. Discussed other LAR C options, at this time we will send her with prescription for STEVE's. - Will call her mother Tess [phone] ) later this AM to update her, spoke to her last night post op.
--- NOTE | 2017-10-12 07:14 | P.DS ---
Date of admission: 10/11/17 19:35 Primary care physician: No Primary Care Physician Brief History from admission: 21-year-old G1 now P0010 who presented to the ER with acute abdominal pain and was found to have a suspected ruptured ectopic , her hemoglobin trended down from approximately 11 to 7, she underwent a diagnostic laparoscopy with right salpingectomy and abdominal washout. She was observed overnight, pre -and intraoperatively she received 4 units of packed red blood cells and 2 units of FFP. On postoperative day #1 she is meeting all of her milestones and was prepared for discharge home. I strongly emphasized the importance of trending her hCG to zero and postoperative follow-up. DS: Diagnosis - Discharge Diagnosis (1) Ectopic , tubal Status: Acute DS: Medications - Discharge Medications Prescriptions: ibuprofen [Motrin IB] 600 mg PO TID-QID PRN #30 tab PRN Reason: Pain norgestimate-ethinyl estradiol [Sprintec (28)] 1 tab PO DAILY 28 Days #28 tab oxycodone-acetaminophen [Percocet] 1 tab PO Q4-6H PRN #15 tab PRN Reason: Pain DS: Summary Hospital Course: see brief history - Time Spent with Patient Total time spent providing and/or coordinating discharge services: Greater than 30 minutes - Quality: VTE Deep Vein Thrombosis/Pulmonary Embolism Present on Admission: No Exam Vital signs: Vital Signs 10/11/17 14:08 10/11/17 14:14 10/11/17 16:20 Temperature 97.5 F L Pulse Rate 117 H 102 H Respiratory Rate 16 17 19 Blood Pressure 101/77 100/55 L Pulse Oximetry 98 97 10/11/17 19:00 10/11/17 19:14 10/11/17 21:19 Temperature 98.8 F 98.0 F 97.4 F L Pulse Rate 107 H 98 H 121 H Respiratory Rate 18 20 20 Blood Pressure 147/60 H 111/58 L 118/63 Pulse Oximetry 100 10/11/17 21:30 10/11/17 21:45 10/11/17 22:00 Temperature 97.4 F L Pulse Rate 118 H 109 H 91 H Respiratory Rate 20 20 20 Blood Pressure 128/62 116/57 L 117/58 L Pulse Oximetry 100 100 100 10/11/17 23:04 10/12/17 02:35 Temperature 97.3 F L 97.2 F L Pulse Rate 86 83 Respiratory Rate 18 18 Blood Pressure 119/59 L 133/67 Pulse Oximetry 98 99 Intake & Output 10/11/17 10/12/17 10/12/17 18:59 06:59 18:59 Intake Total 0 / 0 2800 / 2800 Output Total 970 / 970 Balance 0 / 0 1830 / 1830 Weight 68.039 kg 85.8 kg Intake: Anesthesia Amount 800 / 800 Intake (Blood Product) Amt 0 / 0 0 / 0 Rbc As-3 Leukoreduced Unit 0 / 0 [id number] Rbc As-3 Leukoreduced Unit 0 / 0 [id number] Autotransfusion Amount 1999 / 1999 Output: Urine 900 / 900 Estimated Blood Loss 50 / 50 Urine Amount (Catheter) Indwelling Urethral Catheter Results Procedures completed during hospitalization: diagnostic laparoscopy with right salpingectomy Pending studies at discharge: Pending at discharge 10/11/17 Surgical [PTH] Routine Labs on day of discharge: Labs from last 24 hours 10/12/17 10/12/17 10/12/17 04:40 04:40 01:37 WBC RBC Hgb Hct MCV MCH MCHC RDW Plt Count MPV Neut % (Auto) Lymph % (Auto) [place] % (Auto) Eos % (Auto) Baso % (Auto) Neut # (Auto) Lymph # (Auto) [place] # (Auto) Eos # (Auto) Baso # (Auto) WBC Differential Differential Comment PT INR APTT Fibrinogen Puncture Site Patient Temperature O2 Saturation ABG pH ABG pCO2 ABG pO2 ABG HCO3 ABG O2 Content ABG Base Excess ABG Methemoglobin [place] Test Hemoglobin Carboxyhemoglobin Inspired O2 Critical Value Sodium 140 Potassium 4.5 D Chloride 109 H Carbon Dioxide 20.7 L Anion Gap 10 BUN 7 Creatinine 0.78 Estimated GFR Greater than 89 POC Glucose Random Glucose 129 H Calcium 7.4 L* D Prot Corrected Calcium 8.1 L Magnesium 1.7 Total Bilirubin 0.7 AST 22 ALT 18 Alkaline Phosphatase 34 L Total Protein 5.8 L D Albumin 3.0 L D Lipase Beta HCG, Quant Urine Color Straw Urine Clarity Clear Urine pH 6.0 Ur Specific [place] 1.008 Urine Protein Negative Urine Glucose (UA) Negative Urine Ketones Negative Urine Occult Blood Negative Urine Nitrate Negative Urine Bilirubin Negative Urine Urobilinogen Less than 2 Ur Leukocyte Esterase Negative Urine RBC 1 Urine WBC 2 Urine Mucus Few H Micro UA Comment Culture not ind Urine Culture Comments Culture not ind Clue Cells (Wet Prep) Trichomonas (Wet Prep) Yeast (Wet Prep) Urine Opiates Screen Neg Ur Barbiturates Screen Neg Ur Amphetamines Screen Neg U Benzodiazepines Scrn Neg Urine Cocaine Screen Neg U Cannabinoids Screen Pos H Chlam trachomat DNA PCR N.gonorrhoeae DNA (PCR) Blood Type Antibody Screen MTS Gel Crossmatch Blood Bank Comment 10/12/17 10/12/17 10/11/17 01:37 01:37 19:13 WBC 20.9 H RBC 3.49 L Hgb 10.1 L Hct 30.4 L MCV 87.0 MCH 29.0 MCHC 33.3 RDW 13.9 Plt Count 131 L D MPV 8.3 Neut % (Auto) 92.6 H Lymph % (Auto) 4.9 L [place] % (Auto) 2.5 Eos % (Auto) 0.0 Baso % (Auto) 0.0 Neut # (Auto) 19.3 H Lymph # (Auto) 1.0 [place] # (Auto) 0.5 Eos # (Auto) 0.0 Baso # (Auto) 0.0 WBC Differential . Differential Comment Auto diff final PT 10.6 INR 1.0 APTT 22.2 L Fibrinogen 209 L Puncture Site Patient Temperature O2 Saturation ABG pH ABG pCO2 ABG pO2 ABG HCO3 ABG O2 Content ABG Base Excess ABG Methemoglobin [place] Test Hemoglobin Carboxyhemoglobin Inspired O2 Critical Value Sodium Potassium Chloride Carbon Dioxide Anion Gap BUN Creatinine Estimated GFR POC Glucose Random Glucose Calcium Prot Corrected Calcium Magnesium Total Bilirubin AST ALT Alkaline Phosphatase Total Protein Albumin Lipase Beta HCG, Quant Urine Color Urine Clarity Urine pH Ur Specific [place] Urine Protein Urine Glucose (UA) Urine Ketones Urine Occult Blood Urine Nitrate Urine Bilirubin Urine Urobilinogen Ur Leukocyte Esterase Urine RBC Urine WBC Urine Mucus Micro UA Comment Urine Culture Comments Clue Cells (Wet Prep) Trichomonas (Wet Prep) Yeast (Wet Prep) Urine Opiates Screen Ur Barbiturates Screen Ur Amphetamines Screen U Benzodiazepines Scrn Urine Cocaine Screen U Cannabinoids Screen Chlam trachomat DNA PCR N.gonorrhoeae DNA (PCR) Blood Type Antibody Screen MTS Gel Crossmatch Blood Bank Comment 10/11/17 10/11/17 10/11/17 19:13 18:50 18:30 WBC RBC Hgb Hct MCV MCH MCHC RDW Plt Count MPV Neut % (Auto) Lymph % (Auto) [place] % (Auto) Eos % (Auto) Baso % (Auto) Neut # (Auto) Lymph # (Auto) [place] # (Auto) Eos # (Auto) Baso # (Auto) WBC Differential Differential Comment PT INR APTT Fibrinogen 239 Puncture Site Patient Temperature O2 Saturation ABG pH ABG pCO2 ABG pO2 ABG HCO3 ABG O2 Content ABG Base Excess ABG Methemoglobin [place] Test Hemoglobin Carboxyhemoglobin Inspired O2 Critical Value Sodium Potassium Chloride Carbon Dioxide Anion Gap BUN Creatinine Estimated GFR POC Glucose Random Glucose Calcium Prot Corrected Calcium Magnesium Total Bilirubin AST ALT Alkaline Phosphatase Total Protein Albumin Lipase Beta HCG, Quant Urine Color Urine Clarity Urine pH Ur Specific [place] Urine Protein Urine Glucose (UA) Urine Ketones Urine Occult Blood Urine Nitrate Urine Bilirubin Urine Urobilinogen Ur Leukocyte Esterase Urine RBC Urine WBC Urine Mucus Micro UA Comment Urine Culture Comments Clue Cells (Wet Prep) Trichomonas (Wet Prep) Yeast (Wet Prep) Urine Opiates Screen Ur Barbiturates Screen Ur Amphetamines Screen U Benzodiazepines Scrn Urine Cocaine Screen U Cannabinoids Screen Chlam trachomat DNA PCR N.gonorrhoeae DNA (PCR) Blood Type Antibody Screen MTS Gel Crossmatch See Detail See Detail Blood Bank Comment 10/11/17 10/11/17 10/11/17 18:30 18:30 18:30 WBC RBC Hgb Hct MCV MCH MCHC RDW Plt Count MPV Neut % (Auto) Lymph % (Auto) [place] % (Auto) Eos % (Auto) Baso % (Auto) Neut # (Auto) Lymph # (Auto) [place] # (Auto) Eos # (Auto) Baso # (Auto) WBC Differential Differential Comment PT 10.8 INR 1.1 APTT 22.1 L Fibrinogen Puncture Site Left radial Patient Temperature 98.6 O2 Saturation 97 ABG pH 7.34 L ABG pCO2 30 L ABG pO2 117 ABG HCO3 16 L* ABG O2 Content 10.1 L ABG Base Excess -9.1 L ABG Methemoglobin 0.7 [place] Test Present Hemoglobin 7.3 L Carboxyhemoglobin 1.1 Inspired O2 21 Critical Value Yes Sodium Potassium Chloride Carbon Dioxide Anion Gap BUN Creatinine Estimated GFR POC Glucose Random Glucose Calcium Prot Corrected Calcium Magnesium Total Bilirubin AST ALT Alkaline Phosphatase Total Protein Albumin Lipase Beta HCG, Quant Urine Color Urine Clarity Urine pH Ur Specific [place] Urine Protein Urine Glucose (UA) Urine Ketones Urine Occult Blood Urine Nitrate Urine Bilirubin Urine Urobilinogen Ur Leukocyte Esterase Urine RBC Urine WBC Urine Mucus Micro UA Comment Urine Culture Comments Clue Cells (Wet Prep) Trichomonas (Wet Prep) Yeast (Wet Prep) Urine Opiates Screen Ur Barbiturates Screen Ur Amphetamines Screen U Benzodiazepines Scrn Urine Cocaine Screen U Cannabinoids Screen Chlam trachomat DNA PCR N.gonorrhoeae DNA (PCR) Blood Type A Positive Antibody Screen Negative MTS Gel Crossmatch Blood Bank Comment 10/11/17 10/11/17 10/11/17 18:30 16:40 16:40 WBC 17.2 H RBC 2.91 L Hgb 8.2 L D Hct 25.3 L MCV 87.2 MCH 28.3 MCHC 32.4 RDW 14.7 Plt Count 297 MPV 8.4 Neut % (Auto) 85.8 H Lymph % (Auto) 10.7 [place] % (Auto) 3.4 Eos % (Auto) 0.0 Baso % (Auto) 0.1 Neut # (Auto) 14.7 H Lymph # (Auto) 1.8 [place] # (Auto) 0.6 Eos # (Auto) 0.0 Baso # (Auto) 0.0 WBC Differential . Differential Comment Auto diff final PT INR APTT Fibrinogen Puncture Site Patient Temperature O2 Saturation ABG pH ABG pCO2 ABG pO2 ABG HCO3 ABG O2 Content ABG Base Excess ABG Methemoglobin [place] Test Hemoglobin Carboxyhemoglobin Inspired O2 Critical Value Sodium Potassium Chloride Carbon Dioxide Anion Gap BUN Creatinine Estimated GFR POC Glucose Random Glucose Calcium Prot Corrected Calcium Magnesium Total Bilirubin AST ALT Alkaline Phosphatase Total Protein Albumin Lipase Beta HCG, Quant Urine Color Urine Clarity Urine pH Ur Specific [place] Urine Protein Urine Glucose (UA) Urine Ketones Urine Occult Blood Urine Nitrate Urine Bilirubin Urine Urobilinogen Ur Leukocyte Esterase Urine RBC Urine WBC Urine Mucus Micro UA Comment Urine Culture Comments Clue Cells (Wet Prep) None seen Trichomonas (Wet Prep) None seen Yeast (Wet Prep) None seen Urine Opiates Screen Ur Barbiturates Screen Ur Amphetamines Screen U Benzodiazepines Scrn Urine Cocaine Screen U Cannabinoids Screen Chlam trachomat DNA PCR Not detected N.gonorrhoeae DNA (PCR) Not detected Blood Type Antibody Screen MTS Gel Crossmatch Blood Bank Comment 10/11/17 10/11/17 10/11/17 15:10 15:10 15:10 WBC 13.0 H RBC 3.91 L Hgb 11.1 L Hct 33.9 L MCV 86.6 MCH 28.5 MCHC 32.9 RDW 14.8 Plt Count 333 MPV 8.7 Neut % (Auto) 76.6 H Lymph % (Auto) 18.6 [place] % (Auto) 4.4 Eos % (Auto) 0.1 Baso % (Auto) 0.3 Neut # (Auto) 10.0 H Lymph # (Auto) 2.4 [place] # (Auto) 0.6 Eos # (Auto) 0.0 Baso # (Auto) 0.0 WBC Differential . Differential Comment Auto diff final PT INR APTT Fibrinogen Puncture Site Patient Temperature O2 Saturation ABG pH ABG pCO2 ABG pO2 ABG HCO3 ABG O2 Content ABG Base Excess ABG Methemoglobin [place] Test Hemoglobin Carboxyhemoglobin Inspired O2 Critical Value Sodium 138 Potassium 3.7 Chloride 106 Carbon Dioxide 24.3 Anion Gap 8 BUN 8 Creatinine 0.91 Estimated GFR Greater than 89 POC Glucose Random Glucose 140 H Calcium 8.4 L Prot Corrected Calcium Magnesium Total Bilirubin 0.2 AST 8 L ALT 12 Alkaline Phosphatase 38 L Total Protein 7.3 Albumin 3.8 Lipase 60 L Beta HCG, Quant 3616 H Urine Color Urine Clarity Urine pH Ur Specific [place] Urine Protein Urine Glucose (UA) Urine Ketones Urine Occult Blood Urine Nitrate Urine Bilirubin Urine Urobilinogen Ur Leukocyte Esterase Urine RBC Urine WBC Urine Mucus Micro UA Comment Urine Culture Comments Clue Cells (Wet Prep) Trichomonas (Wet Prep) Yeast (Wet Prep) Urine Opiates Screen Ur Barbiturates Screen Ur Amphetamines Screen U Benzodiazepines Scrn Urine Cocaine Screen U Cannabinoids Screen Chlam trachomat DNA PCR N.gonorrhoeae DNA (PCR) Blood Type Antibody Screen MTS Gel Crossmatch Blood Bank Comment 10/11/17 14:16 WBC RBC Hgb Hct MCV MCH MCHC RDW Plt Count MPV Neut % (Auto) Lymph % (Auto) [place] % (Auto) Eos % (Auto) Baso % (Auto) Neut # (Auto) Lymph # (Auto) [place] # (Auto) Eos # (Auto) Baso # (Auto) WBC Differential Differential Comment PT INR APTT Fibrinogen Puncture Site Patient Temperature O2 Saturation ABG pH ABG pCO2 ABG pO2 ABG HCO3 ABG O2 Content ABG Base Excess ABG Methemoglobin [place] Test Hemoglobin Carboxyhemoglobin Inspired O2 Critical Value Sodium Potassium Chloride Carbon Dioxide Anion Gap BUN Creatinine Estimated GFR POC Glucose 177 H Random Glucose Calcium Prot Corrected Calcium Magnesium Total Bilirubin AST ALT Alkaline Phosphatase Total Protein Albumin Lipase Beta HCG, Quant Urine Color Urine Clarity Urine pH Ur Specific [place] Urine Protein Urine Glucose (UA) Urine Ketones Urine Occult Blood Urine Nitrate Urine Bilirubin Urine Urobilinogen Ur Leukocyte Esterase Urine RBC Urine WBC Urine Mucus Micro UA Comment Urine Culture Comments Clue Cells (Wet Prep) Trichomonas (Wet Prep) Yeast (Wet Prep) Urine Opiates Screen Ur Barbiturates Screen Ur Amphetamines Screen U Benzodiazepines Scrn Urine Cocaine Screen U Cannabinoids Screen Chlam trachomat DNA PCR N.gonorrhoeae DNA (PCR) Blood Type Antibody Screen MTS Gel Crossmatch Blood Bank Comment - Impressions ITS Impressions Pelvis Ultrasound 10/11/17 16:04 CONCLUSION: 1. Intrauterine is not identified despite a quantitative beta-hCG greater than 3500. 2. No abnormalities seen in both adnexa, a 2.2 cm cyst with small internal wall nodule on the right side and a solid lesion in the left adnexa measuring 3.0 cm with 2 different echogenic components. There is also moderate amount of free fluid. Either of the abnormalities in the left or right adnexa could represent ectopic pregnancies. 3. The findings were discussed with the ED providers. Chest X-Ray 10/11/17 18:03 CONCLUSION: The lungs are clear. Discharge Plan - Discharge Disposition Patient Disposition: 01 Discharge Home - Discharge Condition Condition: Good - Discharge Details Anticipated Discharge Date: 10/11/17 - Physicians Team Primary Care Provider: Primary Care Miguel Angeli,No Attending Provider: Tez Waters
[2017-10-12 09:00] LABS: Hematocrit 27.6 % (35.0-46.0); Hemoglobin 9.9 gm/dL (11.6-15.3); Lymph # (Auto) 1.6 th/mm3 (1.0-4.8); Lymph % (Auto) 7.5 % (9.0-44.0); Mean Corpuscular HGB Conc 35.7 % (32.0-36.0); Mean Corpuscular Hemoglobin 29.9 pg (27.0-34.0); Mean Corpuscular Volume 83.6 fL (80.0-100.0); Mean Platelet Volume 8.4 fL (7.0-11.0); Mono # (Auto) 1.2 th/mm3 (0.0-0.9); Mono % (Auto) 5.5 % (0.0-8.0); Neut # (Auto) 18.8 th/mm3 (1.8-7.7); Platelet Count 147 th/mm3 (150-450); Red Blood Count 3.31 mil/mm3 (4.00-5.30); White Blood Count 21.6 th/mm3 (4.0-11.0)
[2017-10-12] MEDS ORDERED: Calcium Carbonate 500 MG Tablet PO SCH (09:00)
[2017-10-12 09:09] LABS: Activated Partial Thrombo Time 22.2 sec (24.3-30.1); INR 1.1 Ratio; Prothrombin Time 10.8 sec (9.8-11.6)
[2017-10-12 09:42] LABS: Anion Gap 11 meq/L (5-15); Blood Urea Nitrogen 5 mg/dL (7-18); Calcium 7.7 mg/dL (8.5-10.1); Chloride 106 meq/L (98-107); Glomerular Filtration Rate Greater Than 89 mL/min (>89); Glucose,Random 100 mg/dL (74-106); Potassium 3.9 meq/L (3.5-5.1); Sodium 139 meq/L (136-145)
== END 2017-10-12 14:28 | disposition home or self-care (01) ==
LOC: NEPC 14:05 → NEDA 19:35 → N07 20:23
PROVIDERS: ADMIT Obstetrics & Gynecology; ATTEND Obstetrics & Gynecology